=== PATIENT | female | born 1985 | race Caucasian/White ===

== ENCOUNTER 2024-06-24 08:00 | Outpatient (RCR) | payer OTHER, SELFPAY ==
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
--- NOTE | 2024-06-24 10:10 | BH.SGPN.GN ---
Behaviors/Verbalizations/Mental Status: []Patient was alert and oriented, casually dressed and groomed. Eye contact good. motor activity congruent. speech within normal limits. Affect congruent, mood anxious. Thoughts linear, logical, no signs of hallucinations or delusion. Client Response/Progress/Benefit: []Pt participated in the group discussions AEB nodding and taking notes. Attentive during psychoeducation Goal Setting. Participated during the discussion on common barriers and pt identified some personal barriers as others opinions and fear of unknown. Group also identified benefits of goals as sense of purpose, improved self-confidence, more motivation for other goals, and improved mental health. Pt identified personal benefits to goal setting. Benefited from increased awareness of mental health benefits of goals as well as psychoeducation on SMART goal criteria. Will continue in IOP to improve distress tolerance, challenge distortions, and prevent decompensation.
--- NOTE | 2024-06-24 11:05 | BH.MDN_ITS ---
Multi-Disciplinary Note Note 60-min Individual: Time Started:: 11:05 Date: 06/24/24 Purpose of session/treatment goals addressed:: Met with patient to identify symptoms which led to IOP admission as well as pertinent psychosocial hx. Used the session to identify goals and begin treatment planning. Eye Contact:: Good Motor Activity:: Restless Appearance:: Casual Speech:: Appropriate Mood:: Anxious and Depressed Affect:: Labile Thoughts:: Linear, Logical and No evidence of hallucinations/delusions noted Staff Interventions:: rapport building and treatment planning Client Response:: When asked about reasons for seeking IOP pt states I'm negative and hateful about myself. She goes on to state I'm a piece of shit burden, and always negative. Tearful at times when discussing panic attack at work and her inability to return to work. Even the small things cause me to spiral out of control. Worsening symptom in the past month. Has not returned to work since 05/27/24 after panic attack. High anxiety and emotion dysregulation. A ccording to pt she has a hx of Bipolar disorder and ADHD. When asked about goals for treatment she discussed stabilizing her mood, increasing her self-esteem, and improving functioning to return to work. Risks/Concerns:: Pt denies active suicidal ideations, plan, or intent. She reports passive thoughts of and survival ambivalence. She presented to the ER for mental health evaluation on 06/09/24 at the request of her Psych Provider due to taking 8 Benadryl. Pt denies this was a suicide attempt stating she typically takes 4 Benadryl to help her sleep. Admits to passive thoughts of and feeling like I would've cared if I didn't wake up however again denies any intent to but rather sleep. Protective factors. Future-oriented. Verbalizes ability to keep herself safe. Progress Toward Goals/Plan:: No progress noted as this was her first day in IOP. Presented as engaged and optimistic about treatment. She reports that her first day in IOP was beneficial. Will continue in IOP to prevent decompensation, maintain safety, stabilize mood, and improve functioning to return to work. Time Stopped:: 12:05
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
--- NOTE | 2024-06-24 12:40 | BH.COMM_ITS ---
Communication Note Communication with Client Communication Note: Met with pt to complete initial paperwork and administer the CSSR-S screening and risk assessment. Pt is a moderate-high risk AEB pt?s report of having recent SI with thoughts of overdosing. Pt also has high impulsivity based on her history of suicidal gestures (wrote a letter 2 years ago) and interrupted attempt (7 years ago). Pt denies any active SI today and reports her daughter is her projective factor. Pt does have a history of self-harming as a teenager and an interrupted suicide attempt several years ago when pt held a gun to her head when she and her were going through a divorce and he stopped pt. Provided lethal means counseling and pt understands the reasons to lock up guns. Pt reports ability to maintain safety today. Discussed case with Dr. Childers and pt will be admitted to [facility] tx with a diagnosis of KRISS F41.1
--- NOTE | 2024-06-26 09:45 | BH.NA ---
Physical Data Vital Signs Pulse Rate: 72 Blood Pressure: 122/76 Height/Weight Height: 1.63 m Weight:: 65.771 kg Weight in Pounds: 145.0 lbs Current Medication Compliance Medication Compliance Do you take your medication as prescribed?: Yes Nutritional History Appetite Nutritional Instructions: Describe your appetite:: Good Additional nutritional information:: Client is on Wegovy that does suppress appetite, but client states she still enjoys food. Client has lost about 100lbs in the past 2 years intentionally. Functional Assessment Sleep Pattern Describe any problems with sleeping: Client states she sleeps about 6-8 hours per night. Sensory/Communication Assess Vision Problems Do you have any vision problems?: Glasses Communication Problems Do you have difficulty understanding what people are saying?: No Medical Problems/History Cardiac Conditions Cardiovascular: Other (See comments) (tachycardia and PVC's at times- on Metoprolol) Metabolic Conditions Metabolic: Other (See comments) (PCOS) Pain Assessment Do you have acute or chronic pain?: No Surgical History Surgical History Have you had any surgeries? If so, list type and date:: Yes (, partial ovary removal, hysterectomy) Substance Abuse Substance Abuse Please describe substance abuse in the last 30 days:: Client states she occasionally drinks alcohol socially, maybe 3 times per year. Client states she quit vaping nicotine about 6 months ago, but did have a few cigarettes in the past 2 weeks. Client smokes marijuana 2-4 times per day. Client drinks 1-2 energy drinks per day, and about 3 cans of pop per day with caffeine. Discussed decreasing caffeine intake with client. Mental Status Summary Mental Status Significant Findings/Observations on Appearance and Mood:: Client is alert and oriented x 4. Client is casually groomed with good hygiene. Client makes good eye contact. Client's voice has normal rate and volume. Client has a somewhat restricted affect. Client has normal processing, but is vague with responses. Client denies delusions/hallucinations. Client denies current SI. Suicide Assessment Suicidal Ideation Are you currently or have you been suicidal in the past?: Yes Suicidal Intentional Rating Scale (SIRS): Suicidal thoughts (past) (denies SI, intent or plan) Physician Notification Past Psychiatric History MH Treatment Hx Past Psychiatric Medications:: Effexor, [place], Zoloft, Paxil, Cymbalta (made mental health worse), Wellbutrin, Buspar, Xanax, Ativan, Abilify, Risperadol Describe (age, circumstance, etc) any past hospitalizations: x 3 in the past, her last being in 2014 after a suicide attempt. Client has had 3 suicide attempts in the past. Current providers for mental health treatment (counselor, psychiatrist, case finishing machine adjuster, etc.): [facility] [phone] for counseling and psychiatry Fall Risk Assessment Age Age: Less than 60 Mental Status Mental Status: Willing & able to ask for assistance when needed Physical Status Physical Status: No problems Impairments Impairments: None Elimination Elimination: Continent AND independent Gait or Balance Gait or Balance: Walks independently Hx of Falls History of falls in the past 6 months: No known history Medications/Substances Psychotropics:: Antidepressants and Antipsychotics Others:: Antihypertensives Medications/substances used within the past 24 hours or ordered to administer: 3 or more of the medications/substances listed above Total Score Total Points:: 2 RN Summary of Impressions Impressions Recommendations Impressions: Psychiatric Issues: 1. Bipolar disorder, NOS (currently depressed) 2. Generalized anxiety disorder 3. Panic disorder 4. Strong cluster B traits 5. Marijuana use disorder 6. Primary support, work and financial issues. Level of Care How do the client's current symptoms and functional deficits support need for this level of care?: Client was referred to IOP by her outpatient psychiatry provider for increased depression. 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 On 06/08/24, it is reported that the client broke up with her fianc?, telling him he deserved better and taking a few Benadryl and stating she didn't care if she didn't wake up. Client states to this nurse she does not remember what happened that night. Client states her fianc? is supportive. Client states my brain is just not okay with being okay, it can't just let me feel okay. Client endorses a few panic attacks a month, and feelings of depression. Client denies current SI. IOP will promote gains and prevent further decompensation while providing social support and skills training.
[2024-06-26 10:02] VITALS: BP 122/76; PULSE 72
--- NOTE | 2024-06-26 10:10 | BH.SGPN.GN ---
Behaviors/Verbalizations/Mental Status: [] Client alert and oriented, casually dressed and groomed. Eye contact fair. Motor activity appropriate. Speech within normal limits. Affect congruent, mood dysthymic. Thoughts linear, logical, no signs of hallucinations or delusions. Client Response/Progress/Benefit: [] Pt responded well to session AEB sharing and listening attentively to others. Group provided examples of benefits of having social support, including: validation, get assistance, and accountability. Pt also participated in group discussion regarding the barriers to accessing support identifying examples to include: negative thinking, lack of communication, and lack of trust. Pt participated in experiential activity illustrating the impact communication, boundaries, and patience play in creating healthy support systems. Pt appeared to benefit from increased knowledge of the benefits of social support and greater self-awareness. Pt to continue IOP to improve distress tolerance, challenge distortions, and prevent decompensation.
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
--- NOTE | 2024-06-26 13:25 | BH.DR.ITP ---
Initial Treatment Plan Patient Information Visit Information: ADMISSION DATE: EXPECTED LOS: 4-6 weeks Problems/Symptoms Problem #1:: Depression Symptom:: Sadness, hopelessness, guilt, worthlessness, passive thoughts of , passive, fleeting suicidal ideation Problem #2:: Anxiety Symptom:: Worry, rumination, panic attacks, avoidance
--- NOTE | 2024-06-27 14:34 | BH.MTP ---
Master Treatment Plan Patient Information Program Physician:: Dr. Mae Villa Primary Therapist:: PATRICIO Simons Psychiatric Diagnoses Psychiatric Diagnoses:: 1. Bipolar disorder, NOS (currently depressed) 2. Generalized anxiety disorder 3. Panic disorder 4. Strong cluster B traits 5. Marijuana use disorder Diagnosis Code(s):: F31.30 Estimated LOS Estimated LOS (in weeks):: 6 Problem/Goal #1 Problem/Goal #1 Stated Goal:: Client will reduce depression, feelings of hopelessness, and low motivation due to through Intensive Outpatient Program. Description of Barriers: Potential barriers include significant negative core beliefs, limited social support, emotion dysregulation, and distorted thoughts. Functional Impact: Pt is a 39 year old female with diagnosis of Bipolar Disorder, NOS, Generalized Anxiety Disorder, and Panic Disorder. History of three previous psychiatric admissions with most recent in 2014. Referred to IOP by her outpatient psych provider due to exacerbation of mental health. Decompensation for the past several weeks. According to pt I'm negative and hateful about myself. States small things cause me to spiral out of control. Pt experienced a panic attacks at work on 05/27/24 which exacerbated symptoms and she has not returned to work. Currently on FMLA. Overwhelming anxiety, crying spells, and nausea when she has attempted to return to work. On 06/08/24 she reports an episode which resulted in racing thoughts which resulted in ending relationships with fianc? and then taking 8 Benadryl. Denies it was suicide attempt however reports survival ambivalence stating I didn't care if I . Recommended by her outpatient psych provider to obtain crisis assessment in the ER which was completed on 06/09/24 and she was discharged home. Denies current active suicidal ideations, plan, or intent. Hx of 3 self-interrupted attempts with most recent in 2022 via attempt to cur self with dull blade. Endorses passive thoughts of and survival ambivalence. I don't' give a shit if I . Increased panic attacks. Reports low energy, low motivation, hopelessness, worthlessness, no pleasure in activities, crying spells, isolation, and avoidance. Medication and treatment compliant. Denies HI or psychosis. Daily cannabis use (4 bowels) since 2019. Objectives Objective #1: Stated Objective: Client will learn and utilize 2-3 healthy coping strategies to manage depressive symptoms. Interventions: Therapist will utilize CBT techniques to assist client with understanding the connection between thoughts, feelings and behaviors. Education will be provided on behavioral activation. Therapist will assist client in learning internal coping strategies to manage depressive symptoms, along with helping client identify triggers. Discharge Criteria: Client will have achieved this goal when can verbalize and has practiced at least 2 healthy coping strategies that successfully manage depressive symptoms. Target Date: 08/09/24 Review Date: 07/17/24 Objective #2: Stated Objective: Client will identify and replace 2-3 negative thinking patterns that reinforce feelings of hopelessness and helplessness. Interventions: Through group and individual therapy sessions client will learn how to identify, challenge, and replace dysfunctional thoughts with positive self-enhancing thoughts. Discharge Criteria: Client will have achieved this goal when can identify at least 2 negative thinking patterns, and replace thoughts with rational thoughts. Target Date: 08/09/24 Review Date: 07/17/24 Problem/Goal #2 Problem/Goal #2 Stated Goal:: Stabilize anxiety level while increasing ability to function on daily basis Description of Barriers: Potential barriers include significant negative core beliefs, limited social support, emotion dysregulation, and distorted thoughts. Functional Impact: Pt is a 39 year old female with diagnosis of Bipolar Disorder, NOS, Generalized Anxiety Disorder, and Panic Disorder. History of three previous psychiatric admissions with most recent in 2014. Referred to IOP by her outpatient psych provider due to exacerbation of mental health. Decompensation for the past several weeks. According to pt I'm negative and hateful about myself. States small things cause me to spiral out of control. Pt experienced a panic attacks at work on 05/27/24 which exacerbated symptoms and she has not returned to work. Currently on FMLA. Overwhelming anxiety, crying spells, and nausea when she has attempted to return to work. On 06/08/24 she reports an episode which resulted in racing thoughts which resulted in ending relationships with fianc? and then taking 8 Benadryl. Denies it was suicide attempt however reports survival ambivalence stating I didn't care if I . Recommended by her outpatient psych provider to obtain crisis assessment in the ER which was completed on 06/09/24 and she was discharged home. Denies current active suicidal ideations, plan, or intent. Hx of 3 self-interrupted attempts with most recent in 2022 via attempt to cur self with dull blade. Endorses passive thoughts of and survival ambivalence. I don't' give a shit if I . Increased panic attacks. Reports low energy, low motivation, hopelessness, worthlessness, no pleasure in activities, crying spells, isolation, and avoidance. Medication and treatment compliant. Denies HI or psychosis. Daily cannabis use (4 bowels) since 2019. Objectives Objective #1: Stated Objective: Client will learn and utilize 2-3 healthy coping strategies to manage depressive symptoms. Interventions: Therapist will utilize CBT techniques to assist client with understanding the connection between thoughts, feelings and behaviors. Education will be provided on behavioral activation. Therapist will assist client in learning internal coping strategies to manage depressive symptoms, along with helping client identify triggers. Discharge Criteria: Client will have achieved this goal when can verbalize and has practiced at least 2 healthy coping strategies that successfully manage depressive symptoms. Target Date: 08/09/24 Review Date: 07/17/24 Objective #2: Stated Objective: Client will identify 2-3 anxiety triggers and 2 coping skills to use when feeling anxious. Interventions: Therapist will assist client in exploring what triggers anxiety and teach client coping strategies to effectively manage anxiety symptoms. Discharge Criteria: Client will have met this goal when can identify at least 2 triggers to anxiety and verbalize two healthy ways to cope with feelings of anxiety. Target Date: 08/09/24 Review Date: 07/17/24
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
--- NOTE | 2024-06-28 09:00 | BH.SGPN.GN ---
Behaviors/Estrella ?Pt alert and oriented, casually dressed and groomed. Eye contact good. Motor activity appropriate. Speech within normal limits. Affect congruent, mood anxious and dysthymic. Thoughts linear, logical, no signs of hallucinations or delusions. Reviewed pt?s symptom tracker, no risk for suicidal ideation, plan, or intent 06/28/24 Client Response/Progress/Benefit: [] Pt was an active participant in group discussions. Attentive. Able to identify mental health wins including finishing a project she has been working on and making plans to start another [employer] project. Additional win expressed as managing her emotions while completing the food stamps application progress. Expressed that finances have been a stressor and she is relieved to have this assistance despite the process being frustrating. Benefited from group support, encouragement, and feedback. Will continue in IOP to prevent decompensation, improve daily functioning, and increase self-compassion. Narrative Note: []
--- NOTE | 2024-06-28 10:13 | BH.SGPN.GN ---
Behaviors/Verbalizations/Mental Status: [] Eye contact is good. Motor activity is appropriate. Appearance is casual. Speech within normal limits. Mood is euthymic. Affect is congruent. Thoughts are linear and logical. No evidence of psychosis. Client Response/Progress/Benefit: [] Client was an active participant in group discussion and experiential activity. Attentive during psychoeducation on resilience. Participated in interactive discussion with peers on the definition of resilience and where it comes from. Group identified that resiliency can be impacted by; past experiences, upbringing, and current mental health state. Group also worked together to identify the benefits of being resilient and how it is related to mental health. Able to relate experiential activity of group juggle to topics of resilience. Worked well with peers in small group in which they identified factors that contribute to resilience. Benefited from increased awareness of resilience and the factors that contribute to building resilience. Will continue in IOP to prevent decompensation and further promote mood stability. Narrative Note: []
--- NOTE | 2024-06-28 11:13 | BH.SGPN.GN ---
Behaviors/Verbalizations/Mental Status: [] Client alert and oriented, neatly dressed and groomed. Eye contact good. Motor activity appropriate. Speech within normal limits. Affect congruent, mood euthymic. Thoughts linear, logical, no signs of hallucinations or delusions Client Response/Progress/Benefit: [] Client responded well to session AEB completing the resilience worksheet provided. Client actively participated in the discussion and worked cooperatively with group to identify strategies to enhance each of the components discussed. Client reports belief they already use resilience trait of ?accepting change as a part of living.? Client discussed that they could work on nurturing a positive view of themselves. Client seemed to benefit from discussing strategies for improving personal resilience and identifying resilience traits client already possesses. Will continue IOP tx to increase self-worth and prevent decompensation. Narrative Note: []
--- NOTE | 2024-07-02 09:00 | BH.SGPN.GN ---
Behaviors/Verbalizations/Mental Status: [] Pt alert and oriented, casually dressed and groomed. Eye contact good. Motor activity appropriate. Speech within normal limits. Affect congruent-tearful. mood anxious and depressed. Thoughts linear, logical, no signs of hallucinations or delusions. Reviewed pt?s symptom tracker, no risk for suicidal ideation, plan, or intent 07/02/24 Client Response/Progress/Benefit: []Pt was an active participant in group discussions. Attentive. Able to identify mental health wins including it being her daughter's birthday today and feeling proud for how she has grown up. Pt also is starting to recognize her self-sabotaging patterns which is a win. Pt stated she is feeling happy this morning, but she is also stressed and was tearful while talking about her stressor. Pt reports feeling guilty that she is currently not working and they have financial stress. Pt receptive to feedback from peers which pt reported was helpful. Progress noted. Benefited from group support, encouragement, and feedback. Will continue in IOP to promote mood stability, combat distorted thinking, and increase distress tolerance skills. Narrative Note: []
--- NOTE | 2024-07-02 10:15 | BH.SGPN.GN ---
Behaviors/Verbalizations/Mental Status: [] Eye contact is good. Motor activity is appropriate. Appearance is casual. Speech is Appropriate. Mood is anxious and dysthymic. Affect is congruent. Thoughts are linear and logical. No evidence of psychosis. Client Response/Progress/Benefit: [] Pt was an active participant in group discussions. Attentive during psychoeducation on the 4 communication styles (Passive, Passive-Aggressive, Aggressive, and Assertive) and the obstacles to effective communication. ?Self-identified a barrier they personally struggle with as being vague and shutting down or isolating preventing them from communicating when they need to or getting their needs met. Contributed during interactive discussion on the benefits of communicating effectively which included; having one's needs met, decreases stress and uncertainty, improved relationships, healthier boundaries, and avoids unnecessary conflict. Worked well with peers to identify the benefits and disadvantages to the different communication styles. Benefited from increased understanding of communication styles and how these can impact effective communication. Will continue in IOP tx to prevent decompensation, improve mood stability and continue to promote application of healthy coping skills. Narrative Note: []
--- NOTE | 2024-07-02 11:10 | BH.SGPN.GN ---
Behaviors/Verbalizations/Mental Status: []Pt alert and oriented, casually dressed. Eye contact good. Motor activity appropriate. Speech within normal limits. Affect congruent, mood dysthymic. Thoughts linear, logical, no signs of hallucinations or delusions. Client Response/Progress/Benefit: [] Pt responded well to session AEB Pt listening attentively to others and providing input during group discussion on the pay offs and costs of the different communication styles. Pt able to connect how current communication style impacts mental health. Connected with peers? comments about importance of using assertive communication. Pt did well with practicing being assertive in the group activity and worked with group to identify potential skills for improving communication skills. Pt stated she wants to work on being less passive because recognizes isn't getting her needs met. Pt seemed to benefit from increasing awareness of healthy strategies to improve communication. Will continue IOP tx to improve distress tolerance, focus on positives, and prevent decompensation.
--- NOTE | 2024-07-03 09:05 | BH.SGPN.GN ---
Behaviors/Verbalizations/Mental Status: [] Client alert and oriented, casual appearance. Eye contact good. Motor activity appropriate. Speech within normal limits. Affect congruent, mood sad. Tearful. Thoughts linear, logical, no signs of hallucinations or delusions. Reviewed client's symptom tracker, no risk for suicidal ideation, plan, or intent. Client Response/Progress/Benefit: [] Client responded well to session AEB listening to others and sharing thoughts/feelings. Client noted mental positive as using opposite action to come to IOP today despite wanting to stay at home because it is her dad's anniversary of his from 8 years ago. Client became tearful about talking about having a hard time coming up with a way to honor her dad since she no longer lives in their home state. Client stated additional mental positive as being vulnerable in group today. Client did not affect current stressor as grief over the loss of her father. Appeared to benefit from support from peers. Will continue IOP tx to improve distress tolerance, continue use of healthy coping skills, and prevent decompensation. Narrative Note: []
--- NOTE | 2024-07-03 10:10 | BH.SGPN.GN ---
Behaviors/Verbalizations/Mental Status: [] Pt alert and oriented, casually dressed and groomed. Eye contact good. Motor activity appropriate. Speech within normal limits. Affect congruent, mood depressed and anxious. Thoughts linear, logical, no signs of hallucinations or delusions. Client Response/Progress/Benefit: [] Pt an active participant in group discussions on defining conflict (internal/external) and possible benefits to conflict. Attentive during psychoeducation on conflict styles (avoidant, accommodating, competing, cooperative) and engaged during group discussion in which peers identified the benefits and consequences to each conflict style. Pt identified that she tends to be avoidant in her relationship with fiance which she would like to change. I want to work on avoidance in my partnership. Benefited from increased awareness of the impact of conflict styles in mental health. Will continue in IOP tx to prevent decompensation, stablzie mood, and improve functioning to return to work. Narrative Note: []
--- NOTE | 2024-07-03 11:10 | BH.SGPN.GN ---
Behaviors/Verbalizations/Mental Status: []Eye contact is good. Motor activity is appropriate. Appearance is casual. Speech is Appropriate. Mood is anxious and depressed. Affect is congruent. Thoughts are linear and logical. No evidence of psychosis. Client Response/Progress/Benefit: [] Pt was an active participant in group discussions and activity. Engaged with peers in activity and identifying healthy ways to approach each conflict scenario. Group discussed various conflict resolution skills that can be useful in addressing conflict outside of IOP. Benefited from practicing and learning conflict resolution skills during group activity. Able to identify areas pt wants to work on to improve how pt manages conflict both internally and externally. Expressed wanting to work on their communication skills with their partner to prevent conflict avoidance. Will continue in IOP to maintain mood stability, improve application of skills, and prevent decompensation. Narrative Note: []
== END 2024-07-04 23:59 ==
LOC: BHIOP 08:00
PROVIDERS: PCP Nurse Practitioner Family; Referring Provider Psychiatry & Neurology Psychiatry; Visit Provider Psychiatry & Neurology Psychiatry
DX: F31.31 Bipolar disorder, current episode depressed, mild (principal); F41.1 Generalized anxiety disorder; F12.90 Cannabis use, unspecified, uncomplicated; Z79.899 Other long term (current) drug therapy
CPT/HCPCS: S9480; 90832; 90837; 90853

== ENCOUNTER 2024-07-05 08:01 | Outpatient (RCR) | payer OTHER, SELFPAY ==
[2024-07-05 00:29] VITALS: BP 122/76; PULSE 72
--- NOTE | 2024-07-05 09:05 | BH.SGPN.GN ---
Behaviors/Verbalizations/Mental Status: [] Eye contact is good. Motor activity is appropriate. Appearance is casual. Speech is Appropriate. Mood is anxious. Affect is restricted. Thoughts are linear and logical. No evidence of psychosis. Reviewed daily check in sheet and no reports of suicidal ideations or intent. Client Response/Progress/Benefit: [] Pt was an active participant in group discussion. Attentive. Pt reports that yesterday was best day in several weeks. Elaborated on the events of yesterday and its mental health benefitis. Limited awareness of skills used to maintain her stability and minimize negative thoughts yesterday. Progress noted. Benefited from group support, encouragement, and feedback. Will continue in IOP to prevent decompensation, stabilize mood, and improve functionin to return to work. Narrative Note: []
--- NOTE | 2024-07-05 10:16 | BH.SGPN.GN ---
Behaviors/Verbalizations/Mental Status: [] Eye contact is good. Motor activity is appropriate. Appearance is casual. Speech is Appropriate. Mood is anxious, dysthymic. Affect is congruent. Thoughts are linear and logical. No evidence of psychosis. Client Response/Progress/Benefit: [] Pt participated at times during group discussion. Engaged in group activity and attentive during psychoeducation. Along with peers, pt was able to identify barriers to taking action in their life. Identified several symptoms and stressors that pt feels are holding them back from progress such as fear that past negative experiences will recur. Stated these things have kept pt from feeling secure and trusting in relationships. Benefited from increased self-awareness of obstacles. Will continue IOP tx to prevent decompensation, stabilize mood, and increase consistency of healthy coping. Narrative Note: []
--- NOTE | 2024-07-08 09:00 | BH.SGPN.GN ---
Behaviors/Verbalizations/Mental Status: [] Eye contact is good. Motor activity is appropriate. Appearance is casual. Speech is Appropriate. Mood is euthymic. Affect is full. Thoughts are linear and logical. No evidence of psychosis. Reviewed daily check in sheet and pt reports 1/5 for thoughts of not wanting to be in existence. Client Response/Progress/Benefit: [] Pt was an active participant in group discussions. Attentive. Daily symptom tracker notes 1/5 for anxiety and depression. Feeling hopeful today. States I folded 12 loads of laundry yesterday. Increased engagement and energy as well as stress relief. Reports improved mood and confidence today. Progress noted. Benefited from group support, encouragement, and feedback. Will continue in IOP to prevent decompensation, increase healthy coping, stablize mood, and improve functioning to return to work. Narrative Note: []
--- NOTE | 2024-07-08 10:15 | BH.SGPN.GN ---
Behaviors/Verbalizations/Mental Status: [] Eye contact is good. Motor activity is appropriate. Appearance is casual. Speech is Appropriate. Mood is anxious. Affect is congruent. Thoughts are linear and logical. No evidence of psychosis. Client Response/Progress/Benefit: [] Pt receptive to session AEB contributing to group discussion, as well as listening attentively to others, and taking notes. Worked with group to brainstorm the definition of stress, the positive and negative aspects of stress on physical and mental health as well as the impact of stress on performance, relationships, and mental health. Pt shared their top stressors to be: work, past trauma, and being a good mother. Shared when feeling overwhelmed with stress pt tends to self-doubt, self-sabotage, and have nightmares . Benefited from increased awareness of positive and negative stress as well as how stress impact individuals. Will continue in IOP to prevent decompensation, increase healthy coping, stablize mood, and improve functioning to return to work. Narrative Note: []
--- NOTE | 2024-07-08 11:15 | BH.SGPN.GN ---
Behaviors/Verbalizations/Mental Status: []Pt alert and oriented, casually dressed and groomed. Eye contact good. Motor activity appropriate. Speech within normal limits. Affect congruent, mood anxious and dysthymic. Thoughts linear, logical, no signs of hallucinations or delusions. Client Response/Progress/Benefit: [] Pt was an attentive and active participant in group discussions and experiential activity, doing well to regulate their emotions throughout the activity and work with peers. Attentive during psychoeducation on the 4 A's (Avoid, adapt, alter, accept) of coping with stress. Shared that they would benefit most from accepting stressors with her ex- that she no longer has control over. Was able to identify the connection between the experiential activity and utilization of stress management skills. Benefited from increased awareness of stress management strategies. Pt will continue IOP tx to prevent decompensation, improve daily functioning, and increase distress tolerance skills. Narrative Note: []
--- NOTE | 2024-07-08 14:31 | BH.MDN_ITS ---
Multi-Disciplinary Note Note 45-min Individual: Time Started:: 11:39 Date: 07/05/24 Purpose of session/treatment goals addressed:: Purpose of session was to review and process mistaken beliefs assessment, as well as begin challenging distortions reinforcing mistaken beliefs. Eye Contact:: Good (tearful throughout) Motor Activity:: Appropriate Appearance:: Neat and Casual Speech:: Appropriate Mood:: Anxious and Depressed Affect:: Congruent Thoughts:: Linear, Logical and No evidence of hallucinations/delusions noted Staff Interventions:: thought challenging, psychoeducation on: (mistaken beliefs, cognitive distortions, window of tolerance), CBT techniques and strengths perspective Client Response:: Pt receptive of session, actively engaged throughout. Reports finding the group setting to be helpful as it normalizes pt?s mental health struggles for her. She reports benefiting from the supportive feedback and advice provided by fellow group participants as well. Pt went on to indicate feeling nervous about meeting for individual sessions, noting ?I don?t like facing my own stuff?. Pt stated connecting with the group topic of ?taking action?, which involves pt?s self-reflecting on what internal barriers keep them ?stuff?. Pt identified ?self-guilt? over past mistakes and beliefs that this makes her a ?bad mother and caregiver?. Receptive of psychoeducation on cognitive distortions and worked with therapist to identify the distortions the identified thoughts fall into. Pt shared struggling most significantly with the ?should/must?, overgeneralization, personalization, and emotional reasoning distortions. Worked with therapist to review the mistaken beliefs assessment given for homework following previous session. Pt Did well to connect her current distorted thoughts with various underlying negative core beliefs reinforcing those thoughts. Identified that underlying beliefs ?My worth is dependent on my performance or achievements? and ?I have to be perfect? or ?It?s not okay to make mistakes.? Have made it difficult for her to practice self- compassion and heal from her own past mistakes that resulted in changes in custody privileges when her daughter was younger. Identified that the belief stems both from a generational value for caregiving, as well as pt needing to cause little stress for her mother growing up due to her sibling?s health issues. Insight this has resulted in unrealistic expectations of herself as a mother and partner, as well as feeling she has failed her daughter for making a mistake and therefore believes she is unworthy of being a mother or loved. Worked with therapist to begin creating evidence against these beliefs, reflecting on beliefs that an individual can be a ?good parent? and still make mistakes, as well as identifying areas in which she has evidence that she is a good mother. Homework to begin a thought log in which pt practices independently challenging distortions reinforcing mistaken beliefs. Risks/Concerns:: Denies suicidal ideation, plan, or intention to date. future oriented. Progress Toward Goals/Plan:: Progress noted. Pt reports improve mood and hopefulness since beginning IOP treatment. Identified benefit from shared environment. Pt reports beginning to reflect more upon factors impacting her own mental health and is beginning to implement skills learned in groups as well. Reduced anxiety overall. Pt does note continued negative self-talk impacting depressive sx, self-hate, reassurance seeking within her relationship, and fear of making mistakes which reinforces sx of anxiety. Pt recommended continued IOP tx to improve mood stability and self-compassion, as well as increase distress tolerance skills, and prevent decompensation. Time Stopped:: 12:24
--- NOTE | 2024-07-10 09:00 | BH.SGPN.GN ---
Behaviors/Verbalizations/Mental Status: [] Eye contact is good. Motor activity is appropriate. Appearance is casual. Speech is Appropriate. Mood is anxious. Affect is constricted. Thoughts are linear and logical. No evidence of psychosis. Reviewed daily check in sheet and no reports of suicidal ideations or intent. Client Response/Progress/Benefit: [] Pt was an active participant in group discussions. Attentive. Reports feeling content today. She has been more engaged and active recently sharing that she went on a walk with her fiance. Insight and awareness of how opposite-action, self-care, and healthy coping skills have been beneficial to her mental health recently. Believes that her mood is stabilizing with less emotion dysregulation, depression, hopelessness, and panic. Progress noted per pt report. Benefited from group support, encouragement, and feedback. Will continue in IOP to maintain safety, prevent decompensation, increase healthy coping, and improve functioning to return to work. Narrative Note: []
--- NOTE | 2024-07-10 10:15 | BH.SGPN.GN ---
Behaviors/Verbalizations/Mental Status: [] Eye contact is good. Motor activity is appropriate. Appearance is casual. Speech is Appropriate. Mood is anxious and content. Affect is congruent. Thoughts are linear and logical. No evidence of psychosis. Client Response/Progress/Benefit: [] Pt receptive to session AEB listening attentively to others and taking notes. Pt attentive and contributing throughout psychoeducation on the cognitive triangle and maintenance cycles. Pt engaged during group discussion reviewing the impact of daily activities and behaviors in either reinforcing unhealthy maintenance cycles and depression or assisting in reducing symptoms (?down? vs ?up? activities). Pt identified personal ?down? activities they engage in as: avoiding tasks, shutting down, and sleeping. Attentive during discussion on Common ?Up? activities Pt identified theirs to include: crafting, taking care of basic needs, and time with daughter. Appeared to benefit from increased awareness of current behaviors and impact these have on mental health. Will continue IOP to improve mood stability, prevent decompensation, and reduce negative thinking patterns. ?? Narrative Note: []
--- NOTE | 2024-07-10 12:21 | BH.MDN_ITS ---
Multi-Disciplinary Note Note 30-min Individual: Time Started:: 11:37 Date: 07/10/24 Purpose of session/treatment goals addressed:: Purpose of session was to address pt?s difficulties with self-forgiveness and the impact this has on reinforcing depression and anxiety sx. Eye Contact:: Good (tearful) Motor Activity:: Appropriate Appearance:: Casual Speech:: Appropriate Mood:: Anxious and Depressed Affect:: Congruent Thoughts:: Linear, Logical and No evidence of hallucinations/delusions noted Staff Interventions:: thought challenging, psychoeducation on: (self- compassion, persecutory vs reparative guilt), CBT techniques, strengths perspective and goal setting Client Response:: Pt actively engaged in session, openly processed recent triggers for inappropriate guilt. Entered session somewhat tearful and noted that the discussion on behavioral activation during group session had triggered some difficult realizations for pt. Explained that the group had been identifying activities they engage in that aid with reducing depression and tho se that heighten sx. Pt reflected on the impact spending time with her daughter has in improving her mood, which triggered feelings of guilt. Described that she feels guilt and shame regarding the incident in the past resulting in supervised visitation, as well as constant fear she will ?do something to mess things up again?. Described difficulties being present with her daughter as she is always thinking about her past mistake and becomes fixated on her own behaviors in order to prevent her daughter from being in any discomfort. Shared shame from her past is ?constant? and impacts her views of herself, her confidence , and reinforces feelings of worthlessness or thoughts that she does not deserve to be mother given the mistake she made in the past. Pt receptive of working with therapist to review the evidence against these thoughts and reflect on ways she challenged them in previous session. Pt able to identify that without self- forgiveness, she will not be able to move past the guilt and shame she currently feels, which will continue to impede her relationship with herself and her supports, specifically her daughter. Insight that self-punishment is not an effective form of redemption and shared readiness to more towards forgiveness. Reviewed how she has changed things since the incident in 2017 and grown as a person and a parent. Pt reflected that she had been doing the best she could at that time and there is much she would tell her past self if possible. Receptive of writing a letter of forgiveness to her past self, using a lens of compassion and empathy rather than blame. Willing to complete for homework and process in next session. Did well to identify self-care activities to engage in prior and post letter writing to maintain mood stability. Risks/Concerns:: Denies suicidal ideation, plan, or intention to date. future oriented. Progress Toward Goals/Plan:: Progress variable. Pt reports increased engagement in some self-care activities, is trying to communicate more effectively with her fianc?, and is finding IOP groups to be supportive. She however struggles with significant negative core beliefs impacting her self- worth and impeding her willingness to engage in some types of self-care as she does not feel she deserves it. Pt is receptive of beginning to work on challe nging thought distortions and improving self-compassion. Recommended continued IOP tx to prevent decompensation, improve self-confidence, and promote mood stability. Time Stopped:: 12:05
--- NOTE | 2024-07-12 09:05 | BH.SGPN.GN ---
Behaviors/Verbalizations/Mental Status: [] Pt alert and oriented, casually dressed and groomed. Eye contact good. Motor activity appropriate. Speech within normal limits. Affect congruent, mood anxious. Thoughts linear, logical, no signs of hallucinations or delusions. Reviewed pt?s symptom tracker SI noted as 2/5 which is within baseline, denies plan, or intent 07/12/24 Client Response/Progress/Benefit: []Pt was an active participant in group discussions. Attentive. Able to identify mental health wins including challenging herself to be more open and vulnerable in tx despite struggling with trusting others. Additional win noted as taking in a kitten but this is also a stressor. Pt share waking up very excited yesterday morning upon learning the kitten had been born which she then energetically shared which her fiance. Explained that he had been waking up still and communicated with pt that her excitement was too much for me right now which reminded pt of her past and was triggering to her. Did well to challenge her associated distortions. Benefited from group support, encouragement, and feedback. Will continue in IOP to prevent decompensation, improve daily functioning, and increase confidence levels. Narrative Note: []
--- NOTE | 2024-07-12 10:10 | BH.SGPN.GN ---
Behaviors/Verbalizations/Mental Status: [] Eye contact is good. Motor activity is appropriate. Appearance is casual. Speech is Appropriate. Mood is anxious. Affect is congruent. Thoughts are linear and logical. No evidence of psychosis Client Response/Progress/Benefit: [] Pt was an active participant in group discussions. Attentive during psychoeducation. Contributed during interactive discussions in which peers attempted to define crisis. Group identified crisis examples. Group also worked together to identify warning signs and unhealthy responses to crisis which included shutting down, isolation, avoidance, over-thinking, disordered eating, and self-harm. Benefited from increased understanding of crisis and awareness of personal responses to crisis. Pt will continue IOP tx to prevent decompensation, stabilize mood, and improve functioning to return to work. Narrative Note: []
--- NOTE | 2024-07-12 11:12 | BH.SGPN.GN ---
Behaviors/Verbalizations/Mental Status: []Pt alert and oriented, appropriate grooming/appearance. Eye contact fair. Motor activity appropriate. Speech within normal limits. Affect congruent, mood dysthymic. Thoughts linear, logical, no signs of hallucinations or delusions. Client Response/Progress/Benefit: []Pt was an active participant in group discussions. Attentive during psychoeducation. In small group pt along with peers developed an active plan for their crisis warning signs. Pt identified three crisis warning signs as well as an action plan for each. One crisis warning sign was isolating. Pt identified strategies to help with this such as: reaching out to a helpful friend, making a call to support, communicating with partner how she is feeling, and getting out of the house to be around people.?Benefited from increased awareness of crisis warning signs and by developing crisis intervention strategies. Will continue in IOP to improve distress tolerance, improve view of self, and prevent decompensation.
--- NOTE | 2024-07-15 09:00 | BH.SGPN.GN ---
Behaviors/Verbalizations/Mental Status: [] Eye contact is good. Motor activity is appropriate. Appearance is casual. Speech is Appropriate. Mood is depressed. Affect is cogruent. Thoughts are linear and logical. No evidence of psychosis. Reviewed daily check in sheet and no reports of suicidal ideations or intent. Client Response/Progress/Benefit: [] Pt was an active participant. Attentive. Daily symptom tracker notes 2/5 for anxiety. Tearful at times. Shared she ? returned to orthodoxy? over the weekend which she has avoided since her mental health decompensation. States that it was beneficial. Beginning to get back to activities. Also shared that she is working on a ?forgiveness letter? towards herself. Shared how her past mistakes are continuing to impact her daily. Guilt and self-hatred. Progress noted. Benefited from group support, encouragement, and feedback. Will continue in IOP to prevent decompensation, stabilize mood, increase healthy coping, and improve functioning. Narrative Note: []
--- NOTE | 2024-07-15 10:15 | BH.SGPN.GN ---
Behaviors/Verbalizations/Mental Status: []Client alert and oriented, casually dressed and groomed. Eye contact good. Motor activity appropriate. Speech within normal limits. Affect congruent, mood anxious and dysthymic. Thoughts linear, logical, no signs of hallucinations or delusions. Client Response/Progress/Benefit: [] Pt responded well to session AEB actively participating throughout group. Pt was attentive throughout group activity discussing famous individuals and how they overcame failure to be successful. Pt helped group identify how fear of failure can impact mental health and relationships. Pt personally identified it leads to pt to push others away/self-sabotage. Participated in experiential activity, working with group members to problem solve. Appeared to benefit from increased knowledge of what causes fear of failure and how it impacts people. Will continue IOP tx to prevent decompensation, improve mood stability, and challenge use of thought distortions reinforcing depression and anxiety sx. Narrative Note: []
--- NOTE | 2024-07-15 11:15 | BH.SGPN.GN ---
Behaviors/Verbalizations/Mental Status: []Pt alert and oriented, neatly dressed and groomed. Eye contact good. Motor activity appropriate. Speech within normal limits. Affect congruent, mood engaged. Thoughts linear, logical, no signs of hallucinations or delusions. Client Response/Progress/Benefit: [] Pt responded well to session, engaged in the experiential activity and attentive throughout group processing. Pt reported fear of failure has kept Pt from success. Pt completed fear of failure worksheet and was able to identify thoughts and behaviors that reinforce personal fear of failure including self-sabotaging behaviors, isolation, and all or nothing thinking. Pt participated in small group discussion regarding strategies to overcome fear of failure. Identified wanting to work on keeping track of her wins and being vulnerable. Appeared to benefit from increased knowledge of strategies to combat fear of failure and gaining self-awareness. Pt will continue IOP tx to prevent decompensation, combat distortions, and improve distress tolerance skills. Narrative Note: []
--- NOTE | 2024-07-17 09:05 | BH.SGPN.GN ---
Behaviors/Verbalizations/Mental Status: [] Pt alert and oriented, casually dressed and groomed. Eye contact good. Motor activity appropriate. Speech within normal limits. Affect congruent, mood content. Thoughts linear, logical, no signs of hallucinations or delusions. Reviewed pt?s symptom tracker, no risk for suicidal ideation, plan, or intent 07/17/24 Client Response/Progress/Benefit: [] Pt was an active participant in group discussions. Attentive. Able to identify mental health wins including her kitten's health as doing well, as well as following through with completing some much needed spring cleaning. 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 Benefited from group support, encouragement, and feedback. Will continue in IOP to prevent decompensation, promote mood stability, and continue to improve use of healthy coping skills. Narrative Note: []
--- NOTE | 2024-07-17 10:15 | BH.SGPN.GN ---
Behaviors/Verbalizations/Mental Status: []Eye contact is good. Motor activity is appropriate. Appearance is neat. Speech is Appropriate. Mood is anxious. Affect is congruent. Thoughts are linear and logical. No evidence of psychosis. Client Response/Progress/Benefit: [] Pt was engaged and an active participant throughout, providing input and taking notes. Participated in an interactive discussion on defining anxiety and identifying cognitive and physiological symptoms of anxiety. The group discussed the role of anxiety on isolation, avoidance, and who this emotion impacts their ability to start and complete activities/goals. Pt identified their physical/physiological signs of anxiety (i.e. shaking, forgetfulness, and headaches). Pt identified safety behaviors (i,e people pleasing, avoidance, sleeping, and canceling plans.) Benefited from increased awareness and insight on anxiety and its impact. Will continue in IOP to improve daily functioning, increase distress tolerance skills, and improve self-compassion. Narrative Note: []
--- NOTE | 2024-07-17 10:38 | BH.MTP_ITS ---
Treatment Plan Review Demographics Date of Admission:: 06/24/24 Date of Treatment Plan Review:: 07/17/24 Admitting Diagnoses:: 1. Bipolar disorder, NOS (currently depressed) 2. Generalized anxiety disorder 3. Panic disorder 4. Strong cluster B traits 5. Marijuana use disorder Current Diagnoses:: 1. Bipolar disorder, NOS (currently depressed) 2. Generalized anxiety disorder 3. Panic disorder 4. Strong cluster B traits 5. Marijuana use disorder Patient Status Patient's Response to Treatment:: Pt has responded well to treatment AEB consistently attending IOP and engaging in both individual and group therapy sessions. Pt consistently completes homework provided from individual counseling. Pt contributes actively during group discussions, takes notes, appears to listen to others, and engages in group activities. Pt's overall DSM-5 scores have decreased by 20% since admission and she reports improved mood and relationships, as well as finding benefit from the coping skills so far. Status of Current Problems and Symptoms: Pt's symptoms have decreased, but still impacting her overall functioning. Pt still reports having moderate-severe symptoms of anxiety more than half of the days in the week, though depressive sx are significantly improved. Pt is gaining insight to her negative thought patterns that reinforce depression, fear of failure, and inappropriate guilt and this has brought up a lot of emotions for pt. Pt is also working on setting boundaries and gaining more self-compassion. Progress Problem #1: Problem Name:: Depression, guilt, worthlessness Status of Goals:: Objective 1- in progress. Pt?s scores for depression juraez ve decreased since admission by 63%. Pt can benefit from reducing these symptoms more and continuing to consistently engage in activities she enjoys, as well as reduce isolation. Objective 2- in progress. Pt is working on self-compassion, dialectical thinking, and combatting persecutory guilt. Team Recommendations:: Team recommends continued goals and objectives to reinforce skills and reduce symptoms. Team recommends pt continue working on combating distortions, being more self-compassionate, and practicing dialectical thinking. Problem #2: Problem Name:: Anxiety, panic, rumination Status of Goals:: Objective 1- in progress. Pt is working on reducing catastrophizing thoughts that lower distress tolerance and she is gaining confidence in her ability to challenge anxious thoughts and regulate physical symptoms. Objective 2- complete with ongoing work encouraged. Pt?s symptoms have only decreased by 10% since admission and she is still reporting significant anxiety. Team Recommendations:: Treatment team encourages pt to continue working on distress tolerance skills, verbalizing boundaries, grounding skills, and practicing self-care to reduce stress.
--- NOTE | 2024-07-17 11:10 | BH.SGPN.GN ---
Behaviors/Verbalizations/Mental Status: [] Pt alert and oriented, casually dressed and groomed. Eye contact good. Motor activity appropriate. Speech within normal limits. Affect congruent, mood euthymic. Thoughts linear, logical, no signs of hallucinations or delusions. Client Response/Progress/Benefit: [] Pt was an active participant AEB pt providing input and listening attentively to peers. Attentive during psychoeducation on mindfulness coping skills and their impact on reducing anxiety and improving overall mental health wellness. Group was able to identify self-soothing and mind-based coping skills which included: 5-senses, meditation, deep breathing, TIPP, thought challenging, and progressive muscle relaxation. Pt also participated with peers in practicing mindfulness skills in session including deep breathing. Pt would like to work on using breathing techniques and baking to manage anxiety. Appeared to benefit from increasing repertoire of anxiety reduction skills. Pt will continue in IOP tx to promote use of healthy coping skills, challenge negative and distorted thoughts, and prevent decompensation.
--- NOTE | 2024-07-17 12:04 | PCM.BH.PN ---
Progress Note Progress Note: History of Present Illness/Interim History: The patient is a 39-year-old , female with a history of bipolar disorder, anxiety, panic attacks and ADHD who is seen in follow-up at the [facility] behavioral health [facility]. I last saw the patient 2-1/2 weeks ago and at that time no medication changes were made as they had been recently changed. The patient feels she is learning valuable skills in the IOP but states that she has a really hard time taking in positive things about herself and has so far been unable to really be kind to herself. Patient's has not had any panic attacks but did have 1 episode where she was very nervous and upset over the fact that her daughter was staying overnight with her and she cried herself to sleep over this. She states her mood overall is less depressed. She is continuing to smoke 2-4 bowls of marijuana a day and has not decreased this amount. She has less hopelessness and only occasional worthlessness now. She always feels guilty. She has less passive thoughts of now and she has no more suicidal ideation now. She also denies any thoughts or actions of self-harm. She states that she still ruminates negatively mostly negative thoughts about herself. Current Psychiatric Medications: [] Seroquel 200 mg p.o. nightly (dose increased 1 month ago); Prozac 40 mg p.o. daily; Lamictal increased to 100 mg p.o. daily about 1 and half weeks ago; prazosin as needed. Mental Status Examination: [] The patient is a 39-year-old female who appears normal for stated age and is casually dressed and groomed with good hygiene. She is ambulatory with a normal gait and has no psychomotor agitation or retardation. Speech is normal rate and rhythm and fluent with no pressure and eye contact is good. Mood is mildly depressed and anxious. Affect is mildly constricted. Thought process is goal-directed and organized. Thought content: The patient is highly self-critical and remains so. There is evidence of passive thoughts of . There is no evidence of suicidal ideation, plan for suicide, homicidal ideation, hallucinations or delusions or symptoms of dc. Reality testing is intact. Intelligence is average. Judgment is intact. Insight is limited but some present. Impulsivity is moderate to high. Diagnoses: [] 1. Bipolar disorder, NOS 2. Generalized anxiety disorder 3. Panic disorder 4. Strong cluster B traits 5. Marijuana use disorder 6. Primary support, work and financial issues Plan: [] The patient will continue the IOP in behavioral health as the structure, support, education and group therapy will hopefully prevent worsening of the patient's symptoms which could require hospitalization. She felt safe during the interview and if it anytime she does not feel safe she agrees to let us know or go to the emergency room. No medication changes were made as her Lamictal dose was recently increased. Discussed cognitive restructuring with the patient and encouraged her to continue to learn to be nicer to herself and less self-critical. She is counseled to decrease her marijuana use but she is reluctant to do this. She will continue to follow-up with her outpatient providers and I will see the patient in follow-up while she is in the IOP.
--- NOTE | 2024-07-22 09:05 | BH.SGPN.GN ---
Behaviors/Verbalizations/Mental Status: [] Eye contact is good. Motor activity is appropriate. Appearance is casual. Speech is Appropriate. Mood is euthymic. Affect is full. Thoughts are linear and logical. No evidence of psychosis. Reviewed daily check in sheet and no reports of suicidal ideations or intent. Client Response/Progress/Benefit: [] Pt was an active participant in group discussions. Attentive. Daily symptom tracker notes no significant distress. States that she is ?feeling better? and is ?hopeful?. When asked about her mental health states ? Its better than it has been?. ? I?m not sure if it?s the medications or therapy but I?m doing better?. Progress noted. Benefited from group support, encouragement, and feedback. Will continue in IOP to prevent decompensation, stabilize mood, and improve functioning to return to work. Narrative Note: [] Behaviors/Verbalizations/Mental Status: [] Eye contact is good. Motor activity is appropriate. Appearance is casual. Speech is Appropriate. Mood is euthymic. Affect is full. Thoughts are linear and logical. No evidence of psychosis. Reviewed daily check in sheet and no reports of suicidal ideations or intent. Client Response/Progress/Benefit: [] Pt was an active participant in group discussions. Attentive. Daily symptom tracker notes no significant distress. States that she is ?feeling better? and is ?hopeful?. When asked about her mental health states ? Its better than it has been?. ? I?m not sure if it?s the medications or therapy but I?m doing better?. Progress noted. Benefited from group support, encouragement, and feedback. Will continue in IOP to prevent decompensation, stabilize mood, and improve functioning to return to work. Narrative Note: []
--- NOTE | 2024-07-22 10:10 | BH.SGPN.GN ---
Behaviors/Verbalizations/Mental Status: [] Eye contact is good. Motor activity is appropriate. Appearance is casual. Speech is Appropriate. Mood is anxious. Affect is congruent. Thoughts are linear and logical. No evidence of psychosis. Client Response/Progress/Benefit: [] Pt receptive of session, actively engaged throughout AEB taking notes, providing input, and contributing in small group discussion. Appeared to connect with group topic of automatic thoughts and cognitive distortions, as well as the impact of thought patterns on mental health, coping behaviors, and relationships. This particular group is very heavy on psychoeducation and pt appeared to connect with distortions and how they can impact functioning. Identified struggling with labeling distortion. Pt appeared to benefit from gaining insight on distorted thinking patterns and how this impacts overall mental health. Will continue IOP to challenge negative thoughts, improve view of self, and prevent decompensation.
--- NOTE | 2024-07-22 11:15 | BH.SGPN.GN ---
Behaviors/Verbalizations/Mental Status: [] Eye contact is good. Motor activity is appropriate. Appearance is casual. Speech is Appropriate. Mood is content. Affect is congruent. Thoughts are linear and logical. No evidence of psychosis. Client Response/Progress/Benefit: [] Pt was an active participant during group discussion. Pt was placed in a smaller group and participated in cognitive distortions jeopardy game with peers. Pt was engaged in the smaller group, participated in group interactions to brainstorm answers, and appeared to be comprehending cognitive distortions. Pt stated could connect with many of the distortions covered in group. Pt stated they now have knowledge on how cognitive distortions are affecting their self-confidence and relationships. Benefited from gaining further insight and awareness of cognitive distortions as well as practicing ways to reframe and challenge thoughts. Will continue in IOP tx to increase healthy thinking patterns, functioning, and reduce reassurance seeking behaviors. Narrative Note: []
--- NOTE | 2024-07-24 09:05 | BH.SGPN.GN ---
Behaviors/Verbalizations/Mental Status: [] Client alert and oriented, casual appearance. Eye contact good. Motor activity appropriate. Speech within normal limits. Affect congruent, mood euthymic. Thoughts linear, logical, no signs of hallucinations or delusions. Reviewed client's symptom tracker, no risk for suicidal ideation, plan, or intent. Client Response/Progress/Benefit: [] Client responded well to session AEB listening to others and sharing thoughts/feelings. Per symptom tracker client scored a 0/5 for depression, with 5 being severe, and is 1/5 for anxiety. Client reported mental positive as completing her individual counseling homework of writing the letter that she had been pushing off because she did not want to feel vulnerable. Client stated although it was challenging to complete this homework she has found it to be useful. Client reported additional mental positive as her kitten is doing well. Client stated a positive and negative is that her uncles are coming to visit and she is excited to see them however distressed about having to get her house ready for visitors. Appeared to benefit from support from peers. Will continue IOP tx to promote utilization of healthy coping skills, continue to improve view of self, and prevent decompensation. Narrative Note: []
--- NOTE | 2024-07-24 10:02 | BH.MDN_ITS ---
Multi-Disciplinary Note Note 30-min Individual: Time Started:: 08:30 Date: 07/24/24 Purpose of session/treatment goals addressed:: Purpose of session is to address treatment plan goal #1 objectives #1 and #2. Eye Contact:: Good (tearful) Motor Activity:: Appropriate Appearance:: Casual Speech:: Appropriate Mood:: Dysthymic Affect:: Congruent Thoughts:: Linear, Logical and No evidence of hallucinations/delusions noted Staff Interventions:: thought challenging, psychoeducation on: (ap propriate vs. inappropriate guilt, self-compassion), CBT techniques and strengths perspective Client Response:: Client receptive of session, openly discussing current sx and stressors. Indicates an overall improvement in mood and reduction in anxiety levels. Described trying to better incorporate thought challenging and more open communication with her ficharo? which has been helpful. Continues to describe negative self-talk and beliefs she is ?a bad mother?. Did report following through will writing a forgiveness letter to her younger self and shared that it was both incredibly difficult and beneficial to her healing process. Described finding herself having more compassion for her younger self and recognizing she had been doing what she thought was best at that time. However, did go on to report difficulties in completely forgiving herself as she has ongoing shame and beliefs that she ?needs to suffer? for the way her past decisions have impacted her relationship with her daughter. Worked with therapist to challenge this using a lens of self-compassion and objectivity. Recognized that she would not want nor expect anyone else to continue to beat themselves of for one parenting mistake. Identified use of distorted thinking patterns, using one mistake as the only thing defining her worth as a mother. Receptive of beginning an accomplishment log specific to moments she engages in healthy parenting behaviors, interactions, thoughts to build evidence against thoughts of not being a ?good mother?. Additionally, receptive of reading her fo rgiveness letter aloud to herself as she has not gone back and reread this since. Risks/Concerns:: Client denies current suicidal ideation, plan, or intention to date. Progress Toward Goals/Plan:: Progress noted. Pt reports improved ability to manage her anxiety, reduced panic, and improved mood overall. Indicated doing well to better communicate with her fianc? without fear of rejection or judgement which has aided in her improving mood. Pt reports beginning to get back into activities she enjoys and is starting to look forward to returning to work first week in August. Does continue to struggle with significant negative self-talk and inappropriate guilt associated with her past. Pt recommended continued IOP tx to promote mood stability, improve confidence, and prevent decompensation.
--- NOTE | 2024-07-24 10:10 | BH.SGPN.GN ---
Behaviors/Verbalizations/Mental Status: []Pt alert and oriented, neatly dressed and groomed. Eye contact good. Motor activity appropriate. Speech within normal limits. Affect congruent, mood anxious. Thoughts linear, logical, no signs of hallucinations or delusions. Client Response/Progress/Benefit: [] Pt was an active participant in group discussion. Attentive during psychoeducation on the CBT [place] (Thoughts, Behaviors, Emotions). Engaged in group discussion on how thoughts and behaviors can contribute to maintaining adverse feelings, such as depression, anxiety, and irritability. Completed worksheet in which pt identified a thought that is keeping them stuck or is in obstacle to increased mental wellness. The thoughts that pt identified were ?I?m a shitty mother, I?m not a good partner, and I?m not worth the trouble.? Shared this maintains depression and anxiety cycles. Pt benefited from increased awareness of the basis of CBT therapy as well as specific thoughts that are impacting pt's progress. Will continue in IOP to prevent decompensation, improve daily functioning, and increase distress tolerance. Narrative Note: []
--- NOTE | 2024-07-24 11:15 | BH.SGPN.GN ---
Behaviors/Verbalizations/Mental Status: []Pt alert and oriented, casually dressed and groomed. Eye contact good. Motor activity appropriate. Speech within normal limits. Affect congruent, mood content. Thoughts linear, logical, no signs of hallucinations or delusions. Client Response/Progress/Benefit: [] Pt responded well to session, contributing to discussion and attentive throughout discussion. Pt identified a negative thought that has kept them stuck. Pt's thought was You're not worth the trouble or love.? Pt reported when they think this way, pt isolates, avoids, and self-sabotages. Pt worked to reframe the thought by finding more rational, realistic ways to look at the thoughts and then processed them within group setting. 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 Pt appeared to benefit from practicing challenging negative thinking with peers and gaining coping skills. Pt will continue IOP tx to promote mood stability, increase thought challenging, and further increase self-confidence. Narrative Note: []
--- NOTE | 2024-07-26 09:00 | BH.SGPN.GN ---
Behaviors/Verbalizations/Mental Status: [] Eye contact is good. Motor activity is appropriate. Appearance is casual. Speech is Appropriate. Mood is euthymic. Affect is full. Thoughts are linear and logical. No evidence of psychosis. Reviewed daily check in sheet and no reports of suicidal ideations or intent. Client Response/Progress/Benefit: [] Pt was an active participant in group discussions. Attentive. Daily symptom tracker notes minimal distress and increase functioning/mood. ?I?m going back to work next week?. According to pt she feels confident and more stable than she has in months. Increase functioning and decreased rumination and emotion dysregulation. Looking forward to this weekend. Engaged, completing self-care, and utilizing skills. Progress noted. Benefited from group support, encouragement, and feedback. Will continue in IOP to maintain safety, prevent decompensation, and improve functioning as she transitions back to work. Narrative Note: []
--- NOTE | 2024-07-26 10:15 | BH.SGPN.GN ---
Behaviors/Verbalizations/Mental Status: []Pt alert and oriented, casually dressed and groomed. Eye contact good. Motor activity appropriate. Speech within normal limits. Affect congruent, mood content. Thoughts linear, logical, no signs of hallucinations or delusions. Client Response/Progress/Benefit: [] Pt took notes and contributed to group discussions. Attentive during psychoeducation on growth mindset. Participated during the activity. Interactive group discussion on growth mindset in which group verbalized their current fixed mindsets and how they affect their mental health. Pt shared common fixed mindset thoughts they have. These thoughts lead to feeling like a bad mother, not maintaining boundaries, and self-criticism. Pt stated they have personally struggled with fixed thoughts causing them to not advocate for their needs out of guilt. Pt benefited from increased awareness of growth mindset and fixed thoughts and how fixed thoughts impact their mental health. Will continue IOP tx to prevent decompensation, improve daily functioning, and promote mood stability. Narrative Note: []
--- NOTE | 2024-07-26 11:10 | BH.SGPN.GN ---
Behaviors/Verbalizations/Mental Status: []Pt alert and oriented, neatly dressed and groomed. Eye contact good. Motor activity appropriate. Speech within normal limits. Affect congruent, mood anxious. Thoughts linear, logical, no signs of hallucinations or delusions. Client Response/Progress/Benefit: []Pt was an active participant during activity and discussion. Pt did well to remain attentive and participate as group worked on identifying characteristics and benefits of adopting a growth mindset. Worked with fellow participants in reframing the example fixed thoughts into growth mindset thoughts. Pt worked on changing own fixed thought and reframed the thought to ?other?s success does not mean I?ve failed.? Pt also wants to work on using dialectical thinking. Pt appeared to benefit from challenging own thoughts and engaging in the activity. Pt will continue IOP tx to promote use of healthy coping skills, increase distress tolerance skills, and improve mood stability. Narrative Note: []
--- NOTE | 2024-07-30 10:15 | BH.SGPN.GN ---
Behaviors/Verbalizations/Mental Status: [] Eye contact is fair. Motor activity is appropriate. Appearance is casual. Speech is Appropriate. Mood is euthymic. Affect is congruent. Thoughts are linear and logical. No evidence of psychosis. Client Response/Progress/Benefit: [] Pt engaged participant AEB listening to others, engaging in activity, and providing feedback at times. Attentive during psychoeducation and provided insight into obstacles that impede mental wellness. Pt chose to not share with group current mental health reality and desired mental health reality. Did appear attentive to others that shared. Identified barriers to desired reality include: negative self-talk, self-sabotage, and using unhealthy coping skills. Benefited from taking look at current mental health state and obstacles for progress. Pt to continue IOP tx to increase follow through on healthy coping skills, challenge distorted/negative thoughts, and prevent decompensation.
--- NOTE | 2024-07-30 11:20 | BH.SGPN.GN ---
Behaviors/Verbalizations/Mental Status: []Eye contact is good. Motor activity is appropriate. Appearance is casual. Speech is Appropriate. Mood is euthymic. Affect is congruent. Thoughts are linear and logical. No evidence of psychosis. Client Response/Progress/Benefit: []Pt was an engaged participant in group discussion and activity. Worked with group to identify strategies to help overcome barriers and obstacles to desired reality. Group developed strategies for the common barriers. Identified personal barriers to desired reality and choose one obstacle to work. Pt stated pt wants to work on barrier of pushing people away by challenging herself to have more open conversations. Pt seemed to benefit from increased repertoire of healthy coping skills/strategies to overcome common barriers to moving forward. Pt is to continue IOP to prevent decompensation, increase healthy coping skills, and improve daily functioning. Narrative Note: []
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
--- NOTE | 2024-08-02 09:00 | BH.SGPN.GN ---
Behaviors/Verbalizations/Mental Status: [] Eye contact is good. Motor activity is appropriate. Appearance is casual. Speech is Appropriate. Mood is anxious. Affect is congruent. Thoughts are linear and logical. No evidence of psychosis. Reviewed daily check in sheet and no reports of suicidal ideations or intent Client Response/Progress/Benefit: [] Pt was an active participant in group discussions. Provided feedback on video Effects of Mindfulness as well as group discussion on gaslighting in mental health. She discussed anxiety regarding returning to work. Discussed some mistaken beliefs regarding her return to work date which led to significant ruminations, fear, and not feeling prepared. Slight decompensation over the recent holiday. It's my own fault. I'm so confused. Unclear specific triggers or cause of ruminations, however this led to emotion dysregulation. Apologizing to staff and group for her anxiety and blaming herself for the mix-up and increased anxiety. In talking further she had mentally prepared herself to return on 08/12 instead of 08/05 which is next week. Appears she had gotten the dates mixed up and came to this realization recently. Tearful at times, restless, and slight panic. She had previously noted feeling prepared to return to work so this acute change is concerning. Unable to process further in group context. Regression noted. Benefited from psychoeducation. Will continue in IOP to prevent decompensation, stabilize anxiety, and improve functioning to return to work. Narrative Note: []
--- NOTE | 2024-08-02 10:00 | BH.SGPN.GN ---
Behaviors/Verbalizations/Mental Status: [] Eye contact is good. Motor activity is appropriate. Appearance is casual. Speech within normal limits. Mood is euthymic. Affect is congruent. Thoughts are linear and logical. No evidence of psychosis. Client Response/Progress/Benefit: [] Client was an active participant in group discussion and experiential activity. Attentive during psychoeducation on resilience. Participated in interactive discussion with peers on the definition of resilience and where it comes from. Group identified that resiliency can be impacted by; past experiences, environment, and current mental health state. Group also worked together to identify the benefits of being resilient and how it is related to mental health. Provided a personal experience in which she used resilience to make a healthy decision for herself in spite of a really difficult situation. Able to relate experiential activity of group juggle to topics of resilience. Worked well with peers in small group in which they identified factors that contribute to resilience. Benefited from increased awareness of resilience and the factors that contribute to building resilience. Will continue in IOP to prevent decompensation and further promote mood stability as pt transitions back to work. Narrative Note: []
--- NOTE | 2024-08-02 11:10 | BH.SGPN.GN ---
Behaviors/Verbalizations/Mental Status: [] Client alert and oriented, neatly dressed and groomed. Eye contact good. Motor activity appropriate. Speech within normal limits. Affect congruent, mood euthymic. Thoughts linear, logical, no signs of hallucinations or delusions Client Response/Progress/Benefit: [] Client responded well to session AEB completing the resilience worksheet provided. Client actively participated in the discussion and worked cooperatively with group to identify strategies to enhance each of the components discussed. Client reports belief they already use resilience trait of ?accepting change as a part of living.? ?And ?avoid seeing crises as insurmountable?. Client discussed that they could work on nurturing a positive view of themselves by working on improving positive self-talk. Client seemed to benefit from discussing strategies for improving personal resilience and identifying resilience traits client already possesses. Will continue IOP tx to increase self-worth and prevent decompensation. Narrative Note: []
--- NOTE | 2024-08-02 14:05 | BH.COMM ---
Communication Note Communication with Client Communication Note: Met with patient after first group due to increased anxiety, racing thoughts, ruminations, emotion dysregulation, and panic this AM related to returning to work. We reviewed [place] which does have her returning to work next week, however she is not scheduled at all with her employer. Due to recent decompensation it's recommended to push back return to work an additional week to allow pt to process and develop strategies to better aid in transition back to work. Fearful that allowing her to return in current state would lead to further decompensation and distress. Letter completed and sent to [facility] regarding extension.
== END 2024-08-03 23:59 ==
LOC: BHIOP 08:01
PROVIDERS: PCP Nurse Practitioner Family; Referring Provider Psychiatry & Neurology Psychiatry; Visit Provider Psychiatry & Neurology Psychiatry
DX: F31.9 Bipolar disorder, unspecified (principal); F41.1 Generalized anxiety disorder; F41.0 Panic disorder [episodic paroxysmal anxiety]; F12.90 Cannabis use, unspecified, uncomplicated
CPT/HCPCS: S9480; 90832; 90834; 90853

== ENCOUNTER 2024-08-05 07:06 | Outpatient (RCR) | payer OTHER, SELFPAY ==
[2024-08-04 00:21] VITALS: BP 122/76; PULSE 72
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
--- NOTE | 2024-08-05 10:15 | BH.SGPN.GN ---
Behaviors/Verbalizations/Mental Status: [] Client alert and oriented, neatly dressed and groomed. Eye contact good. Motor activity appropriate. Speech within normal limits. Affect congruent mood euthymic. Thoughts linear, logical, no signs of hallucinations or delusions. Client Response/Progress/Benefit: [] Client was active participant in group discussions. Attentive during psychoeducation on 4 types of conflict styles (Competing, Collaborating, Avoiding, and Accommodating). Worked with group to define conflict and identify how conflict is helpful. With peers identified barriers to addressing or managing conflict which included:trauma, body language, and cognitive distortions. Client believes they use cooperative style of conflict resolution. 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 Benefited from group due to increase insight and awareness of benefits to conflict, conflict styles, and obstacles to managing conflict. Will continue in IOP to prevent decompensation, increase healthy thought patterns and increase functioning. Narrative Note: []
--- NOTE | 2024-08-05 11:20 | BH.SGPN.GN ---
Behaviors/Verbalizations/Mental Status: [] Client alert and oriented, neatly dressed and groomed. Eye contact good. Motor activity appropriate. Speech within normal limits. Affect congruent, mood euthymic. Thoughts linear, logical, no signs of hallucinations or delusions. Client Response/Progress/Benefit: [] Client engaged in session AEB contributing to discussion and engaging in small group. Attentive during discussion on strategies for more effectively managing conflict in personal life. Client participated in small group for activity and did well collaborating. Client given handout on DEAR MAN with strategies to to communicate effectively in conflict. Client indicated what needs improvement in conflict for them to work on is monitoring emotions. Appeared to benefit from gaining strategies to help client better manage conflict. Will continue IOP tx to increase overall functioning and increase self-care. Narrative Note: []
--- NOTE | 2024-08-07 10:10 | BH.SGPN.GN ---
Behaviors/Verbalizations/Mental Status: [] Pt alert and oriented, casually dressed and groomed. Eye contact good. Motor activity appropriate. Speech within normal limits. Affect congruent, mood euthymic. Thoughts linear, logical, no signs of hallucinations or delusions. Client Response/Progress/Benefit: [] Pt participated during small group discussions. Attentive during psychoeducation on self-sabotage and the reasons people self-sabotage, and impacts on mental health. Showed engagement during small group discussions and helped group identify different types of self-sabotage. Noted she struggles with predicting the outcome of things and intentionally causing conflict which damages her relationships and leads to guilt. Seemed to benefit from gaining awareness about the different ways people self-sabotage and identifying their own. Pt to d/c from [facility] tx and continue outpatient therapy to prevent decompensation and maintain mood stability. Narrative Note: []
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
--- NOTE | 2024-08-07 11:05 | BH.SGPN.GN ---
Behaviors/Verbalizations/Mental Status: []Pt alert and oriented, neatly dressed and groomed. Eye contact good. Motor activity appropriate. Speech within normal limits. Affect congruent, mood euthymic and sad. Thoughts linear, logical, no signs of hallucinations or delusions. Client Response/Progress/Benefit: []Pt responded well to session, attentive and providing input. Pt worked on his mental health wellness garden picture and discussed things that contribute to mental wellness in his life. With peers, pt discussed things that would sabotage one's mental health wellness and added it to the garden metaphor. Pt identified things pt personally does to sabotage as procrastinating, people pleasing, and not following through with goals. Pt attentive during psychoeducation on ways to reduce self-sabotage and pt selected using an accomplishment log as the skill that could help pt reduce self-sabotaging behaviors. Pt appeared to benefit from learning skills and gaining awareness of self-sabotaging behaviors. Pt will discharge from IOP tx today as pt has accomplished her tx goals and no longer meets criteria for IOP level of care. Narrative Note: []
--- NOTE | 2024-08-07 11:21 | BH.MDN ---
Multi-Disciplinary Note Note 45-min Individual: Time Started:: 09:24 Date: 08/07/24 Purpose of session/treatment goals addressed:: Purpose of session was to identify treatment progress, complete maintenance plan, and solidify aftercare plans. Eye Contact:: Good Motor Activity:: Appropriate Appearance:: Neat and Casual Speech:: Appropriate Mood:: Euthymic and Anxious Affect:: Congruent Thoughts:: Linear, Logical and No evidence of hallucinations/delusions noted Staff Interventions:: motivational interviewing, CBT techniques, discharge planning, strengths perspective and reviewed DSM-5 Client Response:: Client reported feeling nervous, but accomplished and proud to be successfully discharging from [facility]. Reflected on struggling to remain consistent with therapy in the past and is glad she was able to this time. Stated she is nervous to not have the group support but feels ready to drop down to individual counseling and return to work. Shared that in the last few weeks she has been taking time to reflect more on what she wants and needs occupationally. 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 Client went on to review overall treatment progress, identifying improved mood, improved use of healthy coping skills to manage anxiety and PTSD triggers, improved boundary setting, and increased confidence and self-compassion. Client stated she also is starting to accept that she is allowed to forgive herself for her past and is continuing to work on healing from the guilt she has associated with it. Noted improved relationships with her daughter and fianc? as a result. Reports that she has ongoing stressors but the majority of these are healthy positive things in her life. Client worked with therapist to complete maintenance plan in which she identified potential triggers, warning signs, self-care activities, and healthy coping skills/strategies. Client stated she does feel more ready to discharge from program and knows she has more skills to manage mental health symptoms. Risks/Concerns:: Denies suicidal ideation, plan, or intention to date. future oriented. Progress Toward Goals/Plan:: Client has made progress with improved mood, improved use of healthy coping skills to manage anxiety and depression, improved self-compassion, and healthier communication with supports. Client has also been able to manage various stressors she's been faced with while in the program. Client still struggles with trauma triggers, but has started to use grounding and self-forgiveness to manage these. Client's DSM 5 cross-cutting measure scores at discharge show a decrease in her mental health symptom of 66%. Client's depression decreased by 75%, anxiety decreased by 30%, irritability by 100%, and suicidal ideation decreased by 100%. Client responded well to IOP AEB consistent IOP attendance, often providing input during group sessions, and engaging in individual therapy.Client is established and will follow up with [place] [id number] for both psychiatry and outpatient counseling services. Pt reports she has appointments 08/18/24 for outpatient counseling and follow-up with psychiatry. Time Stopped:: 10:04
--- NOTE | 2024-08-07 11:45 | BH.DS_ITS ---
Discharge Summary Demographics Date of Admission:: 06/24/24 Discharge Date: 08/07/24 Presenting Problems at Admission:: Pt is a 39 year old female with diagnosis of Bipolar Disorder, NOS, Generalized Anxiety Disorder, and Panic Disorder. History of three previous psychiatric admissions with most recent in 2014. Referred to IOP by her outpatient psych provider due to exacerbation of mental health. Decompensation for the past several weeks. According to pt I'm negative and hateful about myself. States small things cause me to spiral out of control. Pt experienced a panic attacks at work on 05/27/24 which exacerbated symptoms and she has not returned to work. Currently on FMLA. Overwhelming anxiety, crying spells, and nausea when she has attempted to return to work. On 06/08/24 she reports an episode which resulted in racing thoughts which resulted in ending relationships with fianc? and then taking 8 Benadryl. Denies it was suicide attempt however reports survival ambivalence stating I didn't care if I . Recommended by her outpatient psych provider to obtain crisis assessment in the ER which was completed on 06/09/24 and she was discharged home. Denies current active suicidal ideations, plan, or intent. Hx of 3 self-interrupted attempts with most recent in 2022 via attempt to cur self with dull blade. Endorses passive thoughts of and survival ambivalence. I don't' give a shit if I . Increased panic attacks. Reports low energy, low motivation, hopelessness, worthlessness, no pleasure in activities, crying spells, isolation, and avoidance. Medication and treatment compliant. Denies HI or psychosis. Daily cannabis use (4 bowels) since 2019. Discharge Diagnoses:: 1. Bipolar disorder, NOS (currently depressed) 2. Generalized anxiety disorder 3. Panic disorder 4. Strong cluster B traits 5. Marijuana use disorder Reason for Discharge:: Pt has accomplished her tx goals AEB her reduction of DMS-5 symptoms, her self-report of improved functioning and mood, and improved outlook. Pt no longer meets criteria for IOP level of care and will discharge to outpatient counseling. Treatment Progress During Treatment & Response: Pt has responded well to treatment as evidenced by Pt consistently attending IOP sessions and her reduction of DSM-5 scores since admission. Pt was always attentive and receptive to learning during group and individual sessions. Pt actively applied coping skills outside of IOP and reports overall her mood is improved and she is functioning better than she was several months ago. Pt?s DSM 5 cross-cutting measure scores at discharge show a decrease in her mental health symptom of 66%. Client's depression decreased by 75%, anxiety decreased by 30%, irritability by 100%, and suicidal ideation decreased by 100%. Pt has increased self-compassion and faced many hard things. Most importantly, Pt has become more vulnerable, flexible, and confident in her abilities. Pt will follow up with [place] [id number] for medication management and therapy. Issues Still to be Addressed:: Self-confidence, self-compassion, guilt, and self-worth. Pt can also benefit from continuing to practice self-care and boundary setting. Discharge Recommendations/Instructions:: Pt is recommended to continue with outpatient counseling with Fili at [place] [id number]. Pt's next appointment is on 08/19/24. Pt also will continue to follow-up with medication management at [place] [id number] as well. Discharge Handout
--- NOTE | 2024-08-07 11:49 | BH.IGGP_ITS ---
Aftercare Plan Demographics Treatment End Date:: 08/07/24 Psychiatrist:: Mae Chiledrs Psychiatrist Office #:: [phone] [facility]/IOP Therapist:: Elli Jones Therapist Phone #:: [phone] Medications Home Medications fluoxetine 40 mg capsule (Prozac) 40 mg PO DAILY 06/26/24 hydroxyzine HCl 25 mg tablet 25 mg PO TID PRN anxiety 06/26/24 lamotrigine 25 mg tablet (Lamictal) 50 mg PO DAILY 06/26/24 metformin 500 mg tablet 500 mg PO DAILY 06/26/24 metoprolol succinate 50 mg tablet,extended release 24 hr 50 mg PO DAILY 06/26/24 prazosin 1 mg capsule 1 mg PO QHS PRN insomnia 06/26/24 quetiapine 200 mg tablet,extended release 24 hr (Seroquel XR) 200 mg PO QHS 06/26/24 rizatriptan .ROUTE PRN migraine headache 06/26/24 Plan Details Progress/Aftercare Plan Details:: Yvette has responded well to treatment as evidenced by consistently attending IOP sessions and her reduction of DSM-5 scores since admission. She was always attentive and receptive to learning during group and individual sessions. Yvette actively applied coping skills outside of IOP and reports overall her mood is improved and she is 66%. Depression decreased by 75%, anxiety decreased by 30%, irritability by 100%, and suicidal ideation decreased by 100%. functioning better than she was several months ago. She has increased self-compassion and faced many hard things. Most importantly, Yvette has become more vulnerable, flexible, and confident in her abilities. She will follow up with [place] [address] for medication management and therapy. Strategies for Success:: 1. Opposite action! Continue to break that cycle of anxiety, guilt, and depression by not letting emotions be the only drivers of your bus. 2. Remember that thoughts are thoughts NOT facts! You have power in if you give thoughts the time of day or not. 3. self-care! You deserve to take time for you and you also deserve to face the not so fun self-care like delegating tasks and advocating for yourself 4. Self-compassion! You are human and you will make a mistake?BUT that doesn?t mean you are a failure or not good enough. Remember there are no bad parts! 5. Continue to practice acceptance! 6. Practice positive self-talk and keep track of your wins. 7. Remember progress isn?t linear! You may have a setback or bump in the road, but that doesn?t mean you?ve lost all progress. 8. self-reflection and self-awareness. 9. Be understanding with yourself and try to see the whole picture, not just the snapshot. 10. Live in the adamson!! Appointments Appointments/Referrals to Other Services:: Pt is recommended to continue with outpatient counseling with Fili at [place] [address]. Pt's next appointment is on 08/19/24. Pt also will continue to follow-up with medication management at [place] [address] as well.
== END 2024-08-07 13:53 | disposition home or self-care (01) ==
LOC: BHIOP 07:06
PROVIDERS: PCP Nurse Practitioner Family; Referring Provider Psychiatry & Neurology Psychiatry; Visit Provider Psychiatry & Neurology Psychiatry
DX: F31.9 Bipolar disorder, unspecified (principal); F41.1 Generalized anxiety disorder; F41.0 Panic disorder [episodic paroxysmal anxiety]; F12.90 Cannabis use, unspecified, uncomplicated
CPT/HCPCS: S9480; 90834; 90853